=== PATIENT | female | born 1965 | race Caucasian/White ===

== ENCOUNTER → 2017-12-20 | Outpatient (CLI) | payer OTHER ==
--- NOTE | 2017-12-21 15:22 | MM ---
Reason for exam: clinical finding. Last mammogram was performed 2 years and 3 months ago. Indicated problem(s): skin thickening or retraction in the right breast. Physical Findings: Nurse did not find any significant physical abnormalities on exam. MG Diagnostic Mammo w CAD TRACY Bilateral CC and MLO view(s) were taken. Prior study comparison: September 11, 2015, bilateral MG screening mammo w CAD. April 26, 2014, bilateral MG screening mammo w CAD. The breast tissue is heterogeneously dense. This may lower the sensitivity of mammography. Finding: There are multiple 5 mm circumscribed round mass in the subareolar position of the right breast consistent with ultrasound findings, maybe more on diagnostic mammogram images. New finding since September 11, 2015 and April 26, 2014. These results were verbally communicated with the patient and result sheet given to the patient on 12/20/17. ASSESSMENT: Suspicious, BI-RAD 4 RECOMMENDATION: Ultrasound core biopsy of the right breast. Called with mammographic findings and has scheduled an appointment for the patient for 12/27/17 at 9:[address] Wilson. Biopsy scheduled for 12/21/17 at 2:00. PRELIMINARY REPORT CALLED AND FAXED TO DR. WILSON ON 12/21/17.
--- NOTE | 2017-12-21 15:24 | USB ---
Reason for exam: clinical finding. Indicated problem(s): skin thickening or retraction in the right breast. US Breast RT Right complete breast ultrasound includes all four quadrants, the retroareolar region and axilla. Finding demonstrates a 0.6 x 0.6 x 0.5cm round, solid lesion at the posterior nipple, a 0.7 x 0.4 x 0.5cm round, solid lesion at the posterior nipple, adjacent, biopsy recommended and duct ectasia at the posterior nipple. These results were verbally communicated with the patient and result sheet given to the patient on 12/20/17. ASSESSMENT: Suspicious, BI-RAD 4 RECOMMENDATION: Ultrasound core biopsy of the right breast. Called with mammographic findings and has scheduled an appointment for the patient for 12/27/17 at 9:[address] Wilson. Biopsy scheduled for 12/21/17 at 2:00. PRELIMINARY REPORT CALLED AND FAXED TO DR. WILSON ON 12/21/17.
== END | disposition home or self-care (01) ==
LOC: RADMAMWWP 14:49
PROVIDERS: ATTEND Family Medicine
DX: N64.59 Other signs and symptoms in breast (principal)
CPT/HCPCS: 77066

== ENCOUNTER → 2017-12-21 | Day surgery (SDC) | payer OTHER ==
[2017-12-21 13:41] VITALS: RESP 16; BMI 23.8
[2017-12-21 14:58] VITALS: BP 98/64; PULSE 56; TEMP 98.2
--- NOTE | 2017-12-21 15:05 | USB ---
EXAMINATION TYPE: US biopsy breast VAD RT DATE OF EXAM: 12/21/2017 CLINICAL HISTORY: R92.8 ABNORMAL MAMMOGRAM. TECHNIQUE: Ultrasound guided core biopsy of the right breast. COMPARISON: 12/20/2017 FINDINGS: The procedure of ultrasound guided core biopsy was explained to the patient. Benefits, alternatives, and risks were discussed. An informed consent was then obtained. Preprocedural timeout was performed. On preprocedural imaging there are at least 2 solid masses appearing intraductal with ductal expansion. Therefore these may represent papillomas. A questionable third retroareolar mass is not reproducible on postprocedure scanning. The patient was placed in supine positioning for imaging and for the procedure. The overlying skin was prepped and draped in usual sterile fashion. 10 cc of lidocaine buffered with bicarbonate was used as anesthetic into the skin and subcutaneous tissue up to the retroareolar, probable intraductal, assess right breast. Under ultrasound guidance, a 12-gauge vacuum assisted biopsy gun device was used to obtain 4 core samples. Following this, a wing shaped biopsy marker was placed between the 2 biopsied masses. This is illustrated on image 10. Postprocedural mammogram also demonstrates appropriate clip placement. The patient tolerated the procedure well without any immediate complication. The patient was kept in the radiology department for short stay after the procedure and then discharged home in stable condition. IMPRESSION: Successful, uncomplicated ultrasound guided core biopsy of two retroareolar breast masses of nearly identical morphology, both appearing intraductal suspicion for papillomas, full pathology results to follow. Pathology Results: Benign CORE BIOPSY, RIGHT BREAST: Cystic non-proliferative changes: apocrine cyst with chronic inflammation. Microcalcifications are present. Recommendation Follow up mammogram of the right breast in 6 months. CASS[facility]
--- NOTE | 2017-12-21 15:27 | MM ---
Reason for exam: additional evaluation requested from abnormal screening. Last mammogram was performed less than 1 month ago. MG Diagnostic Mammo RT Wo CAD CC and MLO view(s) were taken of the right breast. Prior study comparison: September 11, 2015, bilateral MG screening mammo w CAD. April 26, 2014, bilateral MG screening mammo w CAD. ASSESSMENT: Post procedure mammogram for marker placement RECOMMENDATION: Ultrasound of the right breast in 6 months. PENDING PATHOLOGY RESULTS.
== END ==
LOC: RADUSWWP 13:07
PROVIDERS: ATTEND Family Medicine
DX: N60.11 Diffuse cystic mastopathy of right breast (principal); N61.0 Mastitis without abscess; R92.0 Mammographic microcalcification found on diagnostic imaging of breast
CPT/HCPCS: 88305; 77065; 19083; A4648; J2001

== ENCOUNTER → 2018-02-14 | Day surgery (SDC) | payer OTHER ==
[2018-02-09 14:47] VITALS: BMI 23.6
[~2018-02-14] MED LIST: LACTATED RINGERS 1,000 ML IV SCH; LIDOCAINE 1% 20 ML VIAL (10MG/ML) FOR IV START INTRADERMA ONE; PROPOFOL 10 MG/ML 20 ML VIAL IV ONE
[2018-02-14 07:39] VITALS: TEMP 98.1
--- NOTE | 2018-02-14 08:44 | P.PCN ---
Date of Procedure: 02/14/18 Procedure(s) Performed: Procedure: Total colonoscopy. Preoperative diagnosis: Screening for neoplasia. Postoperative diagnosis: Exam within normal limits. Preparation: HalfLytely prep. Sedation: Was provided by anesthesia. Brief clinical history: The patient is a 52-year-old female who is scheduled for this evaluation for screening for neoplasia age being her risk factor. She has no abdominal complaints, bleeding or anemia. No family history of colon cancer. This would be her first colonoscopy. Procedure: With the patient on her left lateral decubitus position and after informed consent and adequate sedation, the perianal area was inspected and it did not show any fissures or fistulas. He were no masses felt on digital rectal examination. The Olympus CFQ 160L video colonoscope was then inserted in the rectum in the usual fashion and advanced to the cecum. The mucosa appeared healthy. No polyps or tumors were seen or any obvious diverticular disease or other pathology. I retroflexed the endoscope in the rectum before the endoscope was withdrawn. The patient tolerated the procedure well. Plan: The patient was reassured. She will follow-up with you as planned and I recommended repeat exam in 10 years.
[2018-02-14 08:58] VITALS: BP 110/77; PULSE 72; RESP 18
== END ==
LOC: ORWHC2ENDO 07:10
DX: Z12.11 Encounter for screening for malignant neoplasm of colon (principal); E07.9 Disorder of thyroid, unspecified; Z79.890 Hormone replacement therapy
CPT/HCPCS: 81025; J2704; G0121

== ENCOUNTER → 2018-07-12 | Outpatient (CLI) | payer OTHER ==
--- NOTE | 2018-07-13 09:09 | USB ---
Reason for exam: follow-up at short interval from prior study. History: Benign US biopsy breast VAD RT of the right breast, December 21, 2017. Physical Findings: Nurse did not find any significant physical abnormalities on exam. US Breast RT Right complete breast ultrasound includes all four quadrants, the retroareolar region and axilla. Finding demonstrates a 0.6cm and a 0.4cm oval, solid, lesion at the posterior nipple, seen on previous and biopsied. These results were verbally communicated with the patient and result sheet given to the patient on 07/12/18. ASSESSMENT: Benign, BI-RAD 2 RECOMMENDATION: Routine screening mammogram of both breasts in 6 months. Back on schedule.
== END | disposition home or self-care (01) ==
LOC: RADUSWWP 14:00
PROVIDERS: ATTEND Family Medicine
DX: R92.0 Mammographic microcalcification found on diagnostic imaging of breast (principal)

== ENCOUNTER → 2021-03-27 | Outpatient (CLI) | payer OTHER ==
--- NOTE | 2021-03-30 10:34 | MM ---
Reason for exam: screening (asymptomatic). Last mammogram was performed 3 years and 3 months ago. History: Benign US biopsy breast VAD RT of the right breast, December 21, 2017. Physical Findings: A clinical breast exam by your physician is recommended on an annual basis and results should be correlated with mammographic findings. MG Screening Mammo w CAD Bilateral CC and MLO view(s) were taken. Prior study comparison: December 21, 2017, right breast MG diagnostic mammo RT wo CAD. December 20, 2017, bilateral MG diagnostic mammo w CAD TRACY. Previous mammotome biopsy in the right breast. Inversion right nipple. ASSESSMENT: Incomplete: need additional imaging evaluation, BI-RAD 0 RECOMMENDATION: Ultrasound of the right breast. [facility] will attempt to contact patient to return for ultrasound.
== END | disposition home or self-care (01) ==
LOC: RADMAMWWP 12:59
PROVIDERS: ATTEND Family Medicine
DX: Z12.31 Encounter for screening mammogram for malignant neoplasm of breast (principal)
CPT/HCPCS: 77067

== ENCOUNTER → 2021-05-01 | Outpatient (CLI) | payer OTHER ==
--- NOTE | 2021-05-04 09:57 | USB ---
Reason for exam: additional evaluation requested from abnormal screening. History: Benign US biopsy breast VAD RT of the right breast, December 21, 2017. Physical Findings: Nurse did not find any significant physical abnormalities on exam. US Breast Workup Limited RT Technologist: Jess Balbuena Right limited breast ultrasound including focal area of concern, retroareolar and axilla demonstrates a 0.3 x 0.4 x 0.3cm hyperechoic lesion at the nipple, biopsy recommended. These results were verbally communicated with the patient and result sheet given to the patient on 05/01/21. ASSESSMENT: Suspicious, BI-RAD 4 RECOMMENDATION: Ultrasound core biopsy of the right breast. Called office with mammographic findings and has scheduled an appointment for the patient for 06/05/21 at 9:[address] Wilson. Biopsy scheduled 05/28/21 at 1:00. PRELIMINARY REPORT CALLED AND FAXED TO DR. WILSON ON 05/04/21.
== END | disposition home or self-care (01) ==
LOC: RADUSWWP 08:58
PROVIDERS: ATTEND Family Medicine
DX: N64.59 Other signs and symptoms in breast (principal)